=== PATIENT | female | born 1995 | race Caucasian/White ===

== ENCOUNTER → 2016-08-22 | Outpatient (CLI) | payer OTHER, BC ==
[~2016-08-22] MED LIST: AMT50 PO; MDR PO
--- NOTE | 2016-08-22 12:19 | DIAGNOSTIC IMAGING REPORT ---
RIGHT RIBS UNILATERAL WITH PA CHEST CLINICAL HISTORY: Right lower rib pain. Trauma. COMPARISON STUDY: No previous studies for comparison. FINDINGS: The erect chest reveals no pneumothorax. There is no focal pulmonary consolidation. No right-sided rib fractures are visualized. IMPRESSION: No evidence of pneumothorax. No right-sided rib fractures are visualized. Electronically signed by: Vahe Sibley M.D. 08/22/2016 12:17 PM Dictated Date/Time: 08/22/2016 12:16 PM
== END | disposition home or self-care (01) ==
LOC: C.RAD1850 11:42
PROVIDERS: ATTEND Nurse Practitioner Adult Health
DX: R07.81 Pleurodynia (principal)

== ENCOUNTER → 2016-12-14 | Outpatient (CLI) | payer BC, OTHER | END | disposition home or self-care (01) | LOC: C.RDSM 10:30 | PROVIDERS: ATTEND Orthopaedic Surgery | DX: M25.531 Pain in right wrist (principal) ==

== ENCOUNTER → 2017-01-18 | Outpatient (CLI) | payer BC | END | disposition home or self-care (01) | LOC: C.FOODA 09:33 | PROVIDERS: ATTEND Family Medicine | DX: R11.0 Nausea (principal); R53.83 Other fatigue; Z68.31 Body mass index [BMI] 31.0-31.9, adult ==

== ENCOUNTER → 2017-01-26 | Outpatient (CLI) | payer BC, OTHER ==
--- NOTE | 2017-01-26 12:23 | DIAGNOSTIC IMAGING REPORT ---
LEFT FOOT MIN 3 VIEWS ROUTINE HISTORY:21 yearsFemaleFOOT PAIN pain is most pronounced medially without reported trauma. COMPARISON: None available TECHNIQUE: 3 views of the left foot. FINDINGS: There is moderate soft tissue swelling of the medial midfoot without radiopaque foreign body. Soft tissue swelling is also seen within the volar aspect of the distal lower leg proximal to the ankle mortise. There is no acute fracture, dislocation or significant degenerative changes. IMPRESSION: 1. No acute bony abnormality. 2. Moderate soft tissue swelling of the medial midfoot and lower leg. The above report was generated using voice recognition software. It may contain grammatical, syntax or spelling errors. Electronically signed by: Marcelo Del Rio M.D. 01/26/2017 12:22 PM Dictated Date/Time: 01/26/2017 12:19 PM
== END | disposition home or self-care (01) ==
LOC: C.RAD1850 11:54
PROVIDERS: ATTEND Nurse Practitioner Adult Health
DX: M79.672 Pain in left foot (principal)

== ENCOUNTER → 2017-02-02 | Outpatient (CLI) | payer BC ==
--- NOTE | 2017-02-02 12:01 | DIAGNOSTIC IMAGING REPORT ---
RIGHT FINGER(S) MIN 2 VIEWS ROUTINE CLINICAL HISTORY: 21 years-old Female presenting with jammed right finger on door, pain in the third digit. TECHNIQUE: Frontal, oblique, and lateral views of the right third finger were obtained. COMPARISON: None. FINDINGS: No acute fracture, malalignment, or radiopaque foreign body. Minimal soft tissue swelling adjacent to the proximal interphalangeal joint. IMPRESSION: No acute osseous injury of the right third finger. Electronically signed by: Cristofer Mendoza M.D. 02/02/2017 11:59 AM Dictated Date/Time: 02/02/2017 11:58 AM
== END | disposition home or self-care (01) ==
LOC: C.RAD 11:23
PROVIDERS: ATTEND Nurse Practitioner
DX: S69.91XA Unspecified injury of right wrist, hand and finger(s), initial encounter (principal); X58.XXXA Exposure to other specified factors, initial encounter